=== PATIENT | female | born 1980 | race Caucasian/White ===

== ENCOUNTER 2024-05-12 20:24 | Emergency (ER) | payer OTHER ==
[~2024-05-12] VITALS: Ht 167.6 cm; Wt 77.5 kg
[~2024-05-12 20:24] MED LIST: CALCIUM500 M1 PO; CARBOPLATIN150 MG IV; EMEND150 MG IV; ESTRADIOL1 EA10 TD; ESTRADIOL1 MG PO; IBUPROFEN200 MG PO; ONDANSETRO8 MG/50 M2 IV; PACLITAXEL6 MG/1 ML IV; VENTOLIN HFA18 GM INH; VITAMIN D1000 UNIT PO; WOMEN'S MULTI200 MCG PO
[2024-05-12 21:10] LABS: BASOPHILS 0.7 % (0-2); EOSINOPHILS 2.8 % (0-6); HEMATOCRIT 39.6 % (35.0-50.0); HEMOGLOBIN 13.2 g/dL (12.0-18.0); LYMPHOCYTES 31.5 % (24-44); MCH 31.8 (27-36); MCHC 33.2 g/dl (30-36); MCV 95.6 fl (81-99); MONOCYTES 8.2 % (0-12); NEUTROPHILS 56.8 % (39-80); PLATELET COUNT 205 K/uL (140-440); RBC 4.14 M/ul (4.3-5.7); RDW 13.4 (10.5-15.0)
[2024-05-12 21:35] LABS: ALBUMIN 3.8 g/dL (3.4-5.0); ALBUMIN/GLOBULIN RATIO 1.15 (1.1-2.4); ANION GAP 13.7 (7-21); BILIRUBIN, TOTAL 0.3 ng/dL (0.2-1.0); BUN/CREATININE RATIO 19.48 (6.0-28.6); CREATININE, SERUM 0.77 mg/dL (0.55-1.02); POTASSIUM 3.7 mmol/L (3.5-5.1); PROTEIN, TOTAL 7.1 g/dL (6.4-8.2); TSH, 3RD GENERATION 7.259 uIU/mL (0.358-3.740)
[2024-05-12 22:00] LABS: BILIRUBIN, URINE NEGATIVE (negative); BLOOD/HGB, URINE NEGATIVE (Negative); KETONE, URINE NEGATIVE (Negative); LEUK ESTERASE, URINE NEGATIVE (negative); NITRITE, URINE NEGATIVE (negative)
[2024-05-12 22:14] LABS: AMPHETAMINES, URINE NEGATIVE (NEGATIVE); BARBITURATES, URINE NEGATIVE (NEGATIVE); BENZODIAZEPINE, URINE NEGATIVE (NEGATIVE); BUPRENORPHINE, URINE NEGATIVE (NEGATIVE); CANNABINOID, URINE NEGATIVE (NEGATIVE); COCAINE, URINE NEGATIVE (NEGATIVE); ECSTASY, URINE NEGATIVE (NEGATIVE); FENTANYL, URINE NEGATIVE (NEGATIVE); METHADONE, URINE NEGATIVE (NEGATIVE); OPIATES, URINE NEGATIVE (NEGATIVE); OXYCODONE, URINE NEGATIVE (NEGATIVE); PHENCYCLIDINE, URINE NEGATIVE (NEGATIVE)
[2024-05-12] MEDS ORDERED: TETRACAINE HCL 0.5% 4 ML BTL OU ONE (23:00)
[2024-05-12] MEDS ORDERED: NEOMYCIN/POLYMYXIN/HYDROCORT 10 ML HOME.PACK OTIC ONE (23:15)
[2024-05-12 23:35] VITALS: BP 103/72
[2024-05-14 17:00] LABS: TRIIODOTHYRONINE,FREE FREE T3 2.3 pg/mL (2.5-4.3)
[2024-05-14 17:01] LABS: PARATHYROID HORMONE,INTACT 36 pg/mL (15-65)
[2024-05-14 19:41] LABS: PROLACTIN 9.5 ng/mL (2.8-29.2)
== END 2024-05-12 23:35 | disposition home or self-care (01) ==
LOC: ED 20:24
PROVIDERS: Internal Medicine
DX: H57.04 Mydriasis (principal); H60.90 Unspecified otitis externa, unspecified ear; Z88.2 Allergy status to sulfonamides; Z91.048 Other nonmedicinal substance allergy status; Z79.899 Other long term (current) drug therapy
CPT/HCPCS: 36415; 70450; 80053; 80307; 81003; 83970; 84146; 84439; 84443; 84481; 85025; 86140; 99284-25